=== PATIENT | female | born 1985 | race Caucasian/White ===

== ENCOUNTER → 2016-05-25 | Outpatient (CLI) | payer OTHER ==
--- NOTE | 2016-05-25 16:27 | REP ---
Clinical: Anatomical evaluation. Comparison: None . Findings: Examination demonstrates a single live intrauterine in cephalic presentation. motion is identified by technologist. Placenta is noted anteriorly and grade zero without evidence for placenta previa or abruption. Amniotic fluid volume is normal. Cervix measures 4.2 cm in length and appears closed. No evidence for nuchal cord. Gestational age by current measurements 20 weeks 0 days with JUSTINE 10/12/2016 . FHR equals 141 beats per minute. BPD 4.9 cm 20 weeks 5 days HC 17.5 cm 20 weeks 0 days AC 15.2 cm 20 weeks 3 days FL 3.2 cm 20 weeks 0 days HL 3.1 cm 20 weeks 1 day HC/AC ratio 1.15 Estimated weight 339 grams ( 54th percentile). Anatomical assessment demonstrates normal structures including cranium, choroid plexus, cavum, cerebellum/posterior fossa, facial features, lungs, four-chamber heart/ventricular outflow tracts, diaphragm, stomach, cord insertion/three-vessel cord, kidneys/bladder, spine, and extremities. Impression: Single live intrauterine in cephalic presentation. Anatomical assessment is complete and normal. Signed by Ronal Willett MD 05/25/2016 02:19 P
== END ==
LOC: M SMT 12:43
PROVIDERS: ATTEND Specialist
DX: Z34.82 Encounter for supervision of other normal pregnancy, second trimester (principal); Z3A.20 20 weeks gestation of pregnancy

== ENCOUNTER → 2016-07-21 | Outpatient (CLI) | payer OTHER | LOC: M SMT 14:16 | PROVIDERS: ATTEND Obstetrics & Gynecology | DX: Z34.82 Encounter for supervision of other normal pregnancy, second trimester (principal) ==

== ENCOUNTER → 2016-07-26 | Outpatient (CLI) | payer OTHER ==
[2016-07-26 19:35] LABS: MEAN CORPUSCULAR HEMOGLOBIN 34.4 pg (27.0-33.0); MEAN CORPUSCULAR HGB CONC 34.9 g/dl (32.0-36.5); MEAN CORPUSCULAR VOLUME 98.6 fl (80.0-96.0); RED CELL DISTRIBUTION WIDTH 12.8 % (11.5-14.5); WHITE BLOOD COUNT 7.9 K/mm3 (4.0-10.0)
== END ==
LOC: M SMT 13:21
PROVIDERS: ATTEND Obstetrics & Gynecology
DX: Z34.82 Encounter for supervision of other normal pregnancy, second trimester (principal)

== ENCOUNTER → 2016-08-02 | Outpatient (CLI) | payer OTHER | LOC: M LAB 08:01 | PROVIDERS: ATTEND Obstetrics & Gynecology | DX: Z34.82 Encounter for supervision of other normal pregnancy, second trimester (principal) ==

== ENCOUNTER → 2016-09-20 | Outpatient (REF) | payer OTHER | LOC: M LAB REF 13:13 | PROVIDERS: ATTEND Advanced Practice Midwife | DX: Z34.83 Encounter for supervision of other normal pregnancy, third trimester (principal) ==

== ENCOUNTER 2016-10-19 05:54 | Inpatient (IN) | payer OTHER ==
[2016-10-19] VITALS (23 sets, daily range): BP systolic 88–113; BP diastolic 52–72
[~2016-10-19] VITALS: Ht 154.9 cm; Wt 55.0 kg
[2016-10-19] MEDS ORDERED: PRENTAB9 PO (06:07)
[2016-10-19 07:09] LABS: MEAN CORPUSCULAR HEMOGLOBIN 32.9 pg (27.0-33.0); MEAN CORPUSCULAR HGB CONC 34.6 g/dl (32.0-36.5); MEAN CORPUSCULAR VOLUME 95.2 fl (80.0-96.0); RED CELL DISTRIBUTION WIDTH 13.4 % (11.5-14.5); WHITE BLOOD COUNT 8.3 K/mm3 (4.0-10.0)
[2016-10-19] MEDS ORDERED: FENTANYL 2MCG/ML ROPIVACAINE 0.2% IN 0.9% NACL 200ML IVBAG As Ordered ONE (08:12)
[2016-10-19] MEDS ORDERED: ePHEDrine SULFATE 25 MG/5 ML(5MG/ML) SYRINGE IV PRN (09:00)
[2016-10-19] MEDS ORDERED: NALOXONE INJ 0.4 MG/1 ML VIAL (J2310) IV PRN (09:00)
[2016-10-19] MEDS ORDERED: LACTATED RINGER'S 1000 ML IV PRN (09:00)
[2016-10-19] MEDS ORDERED: EPIDURAL/PCA KEYS XX PRN (09:00)
[2016-10-19] MEDS ORDERED: REFRIGERATOR IV KEYS XX PRN (09:00)
[2016-10-19] MEDS ORDERED: EPIDURAL COMMENT XX SCH (09:00)
[2016-10-19] MEDS ORDERED: ONDANSETRON 4MG/2ML VIAL (J2405) IV PRN (09:00)
[2016-10-19] MEDS ORDERED: diphenhydrAMINE INJ 50MG/ML VIAL (J1200) IV PRN (09:00)
[2016-10-19] MEDS ORDERED: FENTANYL/ROPIVACAINE/NACL BAG 200 ML EPIDURAL SCH (09:00)
[2016-10-19] MEDS ORDERED: OXYTOCIN DRIP 30 UNITS in APPROPRIATE DILUENT 1 EA IV SCH ×2 (11:00→17:21)
--- NOTE | 2016-10-19 12:28 | HPE ---
DATE OF ADMISSION: 10/19/2016 31-year-old 1, estimated date of delivery 10/17/2016 presents at 40 weeks 2 days with reports of contractions through the night and bloody show. Denies loss of fluid. Fetus is active. Last normal menstrual period 01/04/2016 for JUSTINE of 10/10/2016, sonogram at 7 weeks changed her date to 10/17/2016. Anatomy scan within normal limits. Appropriate care. She is allergic to penicillin , nuts, cherries, apples, and pineapple. MEDICAL/SURGICAL: Noncontributory. FAMILY HISTORY: Kidney disease. SOCIAL HISTORY: . Father of the baby present and supportive. Denies tobacco, alcohol, drugs or abuse. OBJECTIVE: Prepregnancy weight 106, total weight gain 19 pounds. O+, antibody negative, rubella equivocal. VDRL, hep B, hep C, HIV, gonorrhea, Chlamydia all negative. Declined genetic screening. 1-hour glucose 147. 3-hour was 182, 162 , 136, 130. Group B strep is negative. Vital signs are stable. She is coping well with contractions. Heart rate is regular. Respirations are easy. Abdomen is soft, gravid, longitudinal lie. Contractions 3-4 minutes apart for 60 seconds, moderate. heart 145, moderate variability with accelerations. Sterile vaginal exam 6 cm, 90% effaced , -1 station, bulging bag of water, cephalic and bloody show is noted. ASSESSMENT: Primipara at term, active labor, category one tracing. PLAN: Admit. Labor ad cari. Anticipate normal spontaneous vaginal . MTDD
[2016-10-19] MEDS ORDERED: LR 1,000 ML IV SCH (17:21)
[2016-10-19] MEDS ORDERED: DIBUCAINE 1% OINTMENT 30GM TOP PRN (17:30)
[2016-10-19] MEDS ORDERED: ACETAMINOPHEN 500 MG TAB PO PRN (17:30)
[2016-10-19] MEDS ORDERED: DOCUSATE SODIUM 100 MG CAP PO PRN (17:30)
[2016-10-19] MEDS ORDERED: RHOGAM 300 MCG (1500 IU) INJ (J2790) IM SCH (17:30)
[2016-10-19] MEDS ORDERED: IBUPROFEN 800 MG TAB PO PRN (17:30)
[2016-10-19] MEDS ORDERED: MEASLES,MUMPS,RUBELLA VACCINE INJ (MMR-II) (90707) SC SCH (17:30)
[2016-10-20 06:37] VITALS: BP 101/61
[2016-10-20] MEDS: PRENATAL VITAMINS CHEWABLE TABLET PO SCH (07:52)
[2016-10-20 14:37] VITALS: BP 99/60
[2016-10-20 18:32] VITALS: BP 96/59
[2016-10-21 05:41] VITALS: BP 98/55
[2016-10-21] MEDS ORDERED: IBUP-1114 PO (07:50)
[2016-10-21] MEDS ORDERED: ACET50TA PO (07:50)
[2016-10-21] MEDS: PRENATAL VITAMINS CHEWABLE TABLET PO SCH (08:15)
== END 2016-10-21 11:20 | disposition home or self-care (01) | DRG 775 ==
LOC: M LDO 05:54 → M LDI 06:37 → M OBS 19:01
PROVIDERS: ADMIT Advanced Practice Midwife; ATTEND Obstetrics & Gynecology
PROC: 10E0XZZ Delivery of Products of Conception, External Approach (ICD-10-PCS; principal; 2016-10-19)
PROC: 0KQM0ZZ Repair Perineum Muscle, Open Approach (ICD-10-PCS; 2016-10-19)
PROC: 10907ZC Drainage of Amniotic Fluid, Therapeutic from Products of Conception, Via Natural or Artificial Opening (ICD-10-PCS; 2016-10-19)
DX: O48.0 Post-term pregnancy (principal); Z3A.40 40 weeks gestation of pregnancy; O70.1 Second degree perineal laceration during delivery; Z37.0 Single live birth